=== PATIENT | male | born 1995 | race Caucasian/White ===

== ENCOUNTER 2016-03-30 13:54 | Emergency (ER) | payer OTHER ==
[~2016-03-30] VITALS: Ht 162.6 cm; Wt 60.0 kg
[2016-03-30 14:02] VITALS: Ht 162.6 cm; Wt 60.0 kg
[2016-03-30] MEDS ORDERED: ONDANSETRON (ODT) 4 MG TAB ODT STA (14:58)
[2016-03-30] MEDS ORDERED: IBUPROFEN 200 MG TAB PO ONE (15:00)
[2016-03-30] MEDS ORDERED: IBUP400T22 PO (15:03)
[2016-03-30] MEDS ORDERED: ONDA4TAB14 PO (15:03)
--- NOTE | 2016-03-30 15:09 | ERD ---
ER Documentation Chief Complaint Date/Time DATE: 03/30/16 TIME: 15:04 Chief Complaint RLQ pain and L flank pain X 3 months, nausea when he eats. HPI This is a 20-year-old male presenting to the emergency department complaining of right lower pelvic pain for the past 3 months. Patient states that the pain starts when he sits down, he rates the pain as 4 out of 10. Patient denies diarrhea, vomiting, constipation. He denies taking any other medications for this. Patient states that he has been seen by his primary care physician Dr. rodriguez yesterday who has drawn blood but the results are still pending. He states that he has got an ultrasound which was unremarkable. Patient states that he does have some nausea when he eats sometimes. Denies any medical problems. Denies taking any medication for this. Denies fevers. Denies urinary symptoms or hematuria ROS All systems reviewed and are negative except as per history of present illness. Medications Home Meds Active Scripts Ondansetron (Ondansetron Odt) 4 Mg Tab.rapdis, 4 MG PO Q6H Y for NAUSEA AND/OR VOMITING, #10 TAB Prov:HEMALATHA VASQUEZ PA-C 03/30/16 Ibuprofen* (Motrin*) 400 Mg Tab, 400 MG PO Q6H Y for PAIN AND OR ELEVATED TEMP, #30 TAB Prov:HEMALATHA VASQUEZ PA-C 03/30/16 Allergies Allergies: Coded Allergies: No Known Allergy (Unverified , 03/30/16) PMhx/Soc Medical and Surgical Hx: pt denies Medical Hx, pt denies Surgical Hx History of Surgery: No Anesthesia Reaction: No Hx Neurological Disorder: No Hx Respiratory Disorders: No Hx Cardiac Disorders: No Hx Psychiatric Problems: No Hx Miscellaneous Medical Probl: No Hx Alcohol Use: No Hx Substance Use: No Hx Tobacco Use: No Smoking Status: Never smoker Physical Exam Vitals Vital Signs Date Time Temp Pulse Resp B/P Pulse Ox O2 Delivery O2 Flow Rate FiO2 03/30/16 14:02 98.5 68 16 133/78 100 Physical Exam GENERAL: well-developed/well-nourished, in no apparent distress, non-toxic appearing HENT: NC/AT, moist mucous membranes EYES: Conjunctiva normal NECK: Supple, no lymphadenopathy PULM: CTA bilaterally, no rales, rhonchi, or wheezing heard CV: Normal S1S2, RRR, good capillary refill GI: Soft, non-distended, mild tender to palpation in right pelvic region Normal bowel sounds, no masses or organomegaly felt on exam No gross peritonitis, no bruits Negative Rovsing, negative Conway, negative McBurney's point, Negative CVAT BACK: No masses EXT: No clubbing, cyanosis, or edema NEURO: Alert and Orientated SKIN: Intact, normal turgor PSYCH: Normal mood and mentation Results 24 hrs Current Medications Medications (Trade) Dose Ordered Sig/Jose Elias Route PRN Reason Start Time Stop Time Status Last Admin Dose Admin Ibuprofen (Motrin) 400 mg ONCE ONCE PO 03/30/16 15:00 03/30/16 15:01 DC Ondansetron HCl (Zofran Odt) 4 mg ONCE STAT ODT 03/30/16 14:58 03/30/16 15:01 DC Procedures/MDM This is a 20-year-old male presenting to the emergency department complaining of right lower pelvic pain for the past 3 months. It may be a hernia but was not visualized on examination. I have thought about prostatitis, appendicitis, testicular torsion, and other acute abdomen conditions bu7t unlikely since it is chronic in nature and patient appears well. Patient states that he has been seen by his primary care physician Dr. Rodriguez yesterday who has drawn blood but the results are still pending , in addition he had an abdominal ultrasound which was unremarkable. Patient appears well, he is afebrile. He is ambulating well and speaking clearly. He does not seem to be in significant pain. His abdominal exam was unremarkable. I have discussed with the patient that we can draw blood and do a CT scan, I have discussed the risks versus the benefits of a CT scan -he decided to opt out of it and follow-up back with his primary care physician to get a referral to see a security messenger. He refused medications. I have given him strict precautions to return to the ER for any worsening signs or symptoms. I have given a prescription for ibuprofen and Zofran. Patient understands and agrees with this plan Departure Diagnosis: Primary Impression: Pelvic pain Condition: Fair Patient Instructions: Pelvic Pain, Unknown Cause Referrals: Your Doctor Additional Instructions: FOLLOW UP WITH YOUR PRIMARY CARE PHYSICIAN TOMORROW.Return to this facility if you are not improving as expected. Take all medicines as directed Return to this facility if you are not improving as expected. HEMALATHA VASQUEZ PA-C Mar 30, 2016 15:09
== END 2016-03-30 15:10 | disposition home or self-care (01) ==
LOC: FTE 13:54
DX: R10.2 Pelvic and perineal pain (principal); R11.0 Nausea
CPT/HCPCS: 99283